=== PATIENT | female | born 1955 | race Caucasian/White ===

== ENCOUNTER → 2016-11-04 | Day surgery (SDC) | payer OTHER ==
[~2016-11-04] VITALS: Ht 165.1 cm; Wt 65.8 kg
[~2016-11-04] MED LIST: DULOXETINE HCL60 MG PO; FOSAMAX70 M1 PO; SIMVASTATIN20 M2 PO; TOFRANIL50 MG PO; XANAX XR0.5 M1 PO
--- NOTE | 2016-11-04 12:34 | Operative Report ---
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 The patient is not willing to continue with debridements as needed of her recurrent tumor of the distal phalanx and soft tissues. Patient is requesting irritation at the PIP level. He has been given the option of second opinions in the past and is chosen not to pursue it. She understands the outcome of surgery. Patient was brought to the operating room placed supine on the table intravenous sedation antibiosis given in the left hand was prepped and draped in usual sterile fashion. Digital block was placed. Posterior flap was preserved and the finger was divided at the level of the PIP. Frandy was carried out to debride further of the of the proximal phalanx to remove any chance of tumor spread. That debridement of the wound was made hemostatic and closed with a volar flap.
== END ==
LOC: STS 02:29
DX: M89.8X4 Other specified disorders of bone, hand (principal); Z85.828 Personal history of other malignant neoplasm of skin; M81.0 Age-related osteoporosis without current pathological fracture; E21.3 Hyperparathyroidism, unspecified; F17.200 Nicotine dependence, unspecified, uncomplicated
CPT/HCPCS: 88305; J2250